=== PATIENT | female | born 1985 | race Caucasian/White ===

== ENCOUNTER 2016-04-25 10:46 | Emergency (ER) | payer OTHER ==
[~2016-04-25 10:46] MED LIST: ALBUTEROL HFA INH; AMOXICILLIN PO; AMOXICILLIN875 MG PO; BACTRIM DS TABL1 TA1 PO; BACTRIM DS TABL1 TAB PO; BENZONATATE PO; BIRTH CONTROL PILL; BIRTH CONTROL PILL PO; CIPRO PO; CIPROFLOXACIN500 M1 PO; CORTISPORIN-TC10 ML AS; DARVOCET-N 1001 TAB PO; DICLOFENAC PO; DOXYCYCLINE HY100 M3; FIORICET PO; FLEXERIL PO; FLEXERIL10 M1 PO; FLEXERIL10 MG PO; IBUPROFEN PO; IBUPROFEN800 MG PO; KEFLEX500 MG PO; KLONOPIN1 MG PO; METHADONE PO; MOTRIN600 M1 PO; MOTRIN600 MG PO; NAPROSYN500 MG PO; NAPROXEN PO; NO MEDICATIONS; ORTHO TRI-7 DAYS X PO; ORTHO TRI-7 DAYSX 3 PO; PENICILLIN V P500 MG PO; PERCOCET5/325 PO; PHENERGAN PO; PREDNISONE PO; PREDNISONE1 MG PO; PRENATAL MULITV1 TAB PO; PYRIDIUM PO; PYRIDIUM100 MG PO; SUDAFED PO; TYLENOL #3 PO; UNK ABX; VICODIN 5/500 T1 TAB PO; VICODIN PO; VOLTAREN50 MG PO; VOLTAREN75 MG PO; ZANAFLEX4 M1 PO; ZITHROMAX PO; ZONEGRAN100 MG; ZONEGRAN100 MG PO; ZYRTEC PO; [UNRECOGNIZED DRUG - OTHER]; [UNRECOGNIZED DRUG - OTHER] PO
[2016-04-25 11:10] LABS: BASOPHIL% 0.3 % (0-2.5); EOSINOPHIL# 0.1 X10e3 (0-0.7); EOSINOPHIL% 0.4 % (0.0-7.0); HEMATOCRIT 39.3 % (35.0-45.0); HEMOGLOBIN 12.8 gm/dL (12.0-16.0); LYMPHOCYTE# 0.9 X10e3 (1.0-3.5); LYMPHOCYTE% 6.7 % (17.0-45.0); MEAN CELL VOLUME 81.2 FL (83-96); MEAN CORPUSCULAR HEMOGLOBIN 26.3 PG (28-34); MEAN CORPUSCULAR HGB CONC 32.4 g/dL (30-36); MEAN PLATELET VOLUME 6.8 FL (6.5-11.5); MONOCYTE# 0.5 X10e3 (0-1.0); MONOCYTE% 3.7 % (3.0-12.0); NEUTROPHIL# 11.8 X10e3 (1.5-7.1); NEUTROPHIL% 88.9 % (40-75); PLATELET COUNT 301 X10e3 (140-420); RED BLOOD COUNT 4.85 X10e (3.90-5.30); RED CELL DISTRIBUTION WIDTH 14.6 % (11.0-15.5); WHITE BLOOD COUNT 13.3 X10e3 (4.0-10.5)
[2016-04-25 11:13] LABS: DIFF IND NO
[2016-04-25 11:48] LABS: ALKALINE PHOSPHATASE 83 U/L (32-92); ALT (SGPT) 25 U/L (10-40); AST (SGOT) 20 U/L (10-42); BILIRUBIN, DIRECT 0.1 mg/dL (0.0-0.2); BILIRUBIN,INDIRECT 0.1 mg/dL (0.0-0.9); BILIRUBIN,TOTAL 0.2 mg/dL (0.2-2.0); BLOOD UREA NITROGEN 14 mg/dL (9-23); CALCIUM SERUM 8.6 mg/dL (8.4-10.2); CARBON DIOXIDE 25 mmol/L (22-31); CHLORIDE 103 mmol/L (100-111); CREATININE SERUM 0.7 mg/dL (0.6-1.4); GLOM FILT RATE Estimated ABOVE60 mL/min (>60); GLUCOSE FASTING 99 mg/dL (70-110); LIPASE 34 U/L (22-51); POTASSIUM 4.5 mmol/L (3.5-5.1); PROTEIN TOTAL SERUM 7.2 g/dL (6.0-8.3); SODIUM 134 mmol/L (135-145)
[2016-04-25 12:07] LABS: URINE SOURCE CLEAN CATCH
[2016-04-25 12:14] LABS: URINE APPEARANCE CLEAR; URINE BILIRUBIN NEG (NEG); URINE BLOOD NEG (NEG); URINE COLOR YELLOW; URINE GLUCOSE NEG (NEG); URINE KETONE NEG (NEG); URINE LEUKOCYTE ESTERASE NEG (NEG); URINE NITRATE NEG (NEG); URINE PH 6.5 (5-8); URINE PROTEIN NEG (NEG); URINE SPECIFIC GRAVITY 1.028 (1.003-1.035)
[2016-04-25 12:19] LABS: CULTURE INDICATED? NO
== END 2016-04-25 12:55 | disposition home or self-care (01) ==
LOC: CED 10:46
PROVIDERS: Emergency Medicine
DX: R10.84 Generalized abdominal pain (principal); R19.7 Diarrhea, unspecified; F41.9 Anxiety disorder, unspecified; Z98.51 Tubal ligation status; F17.210 Nicotine dependence, cigarettes, uncomplicated; Z79.899 Other long term (current) drug therapy
CPT/HCPCS: 36415; 80048; 80076; 81003; 82947; 83690; 84703; 85025; 96361; 96372; 96374; 99284; J0500; J2405

== ENCOUNTER → 2016-05-13 | Outpatient (CLI) | payer OTHER ==
--- NOTE | ~2016-05-13 | CR63 ---
[facility] A Service of [facility] RADIOLOGY TEXT RESULTS PATIENT: EDYTA MUELLER LOCATION: [facility] : 87 UNIT #: [id number] AGE: [address]: Isaiah Joel MD SEX: F ORDER DR: [id number] [facility] [address] [place], [place] [address] [id number] O MR#: [id number] Acc #: [id number] NAME: EDYTA MUELLER : 1985 SEX: F STUDY DATE/TIME: 05/13/2016 10:29 UNIT: CLA ROOM: STUDY DESCRIPTION: CR Chest 2 View Attending Physician: Isaiah Joel M.D. Referring Physician: Isaiah Joel M.D. Ordering Physician: Isaiah Joel M.D. Primary Care Physician: Adrián Kinsey M.D. MEDICAL IMAGING REPORT This report is preliminary unless electronic signature is present EXAM Chest 2 views dated 05/13/2016 at 10:29 hours. COMPARISON Chest 2 views dated 12/19/14 at 01:34 hours. HISTORY Preop evaluation for lap sleeve gastrectomy. FINDINGS 2 views of the chest were obtained. PA and lateral examination of the chest upright shows a good expansion of the parenchyma with a normal distribution of the pulmonary vascularity. There is no indication of congestion, effusion, infiltrate, tumor, or nodular density. The pleural reflections and diaphragmatic contours are normal. The cardiac silhouette and mediastinal anatomy is within normal limits. IMPRESSION Normal chest. Dictated by... Codie Walsh M.D. THIS IS AN ELECTRONICALLY VERIFIED REPORT Codie Walsh M.D. at 05/14/2016 3:03 PM CPR/cmm TD: 05/13/2016 15:11 [facility] A Service of [facility] & [facility] RADIOLOGY TEXT RESULTS PATIENT: EDYTA MUELLER LOCATION: [facility] : 87 UNIT #: [id number] AGE: [address]: Isaiah Joel MD SEX: F ORDER DR: JOB #: [id number] MEDICAL IMAGING REPORT COPY
--- NOTE | ~2016-05-13 | EKG ---
PATIENT: EDYTA MUELLER UNIT #: [id number] Ventricular Rate: 79 BPM Atrial Rate: 79 BPM P-R Interval: 146 ms QRS Duration: 82 ms Q-T Interval: 388 ms QTC Calculation(Bezet): 444 ms P [place]: 62 degrees Calculated R [place]: -6 degrees Calculated T [place]: 8 degrees Diagnosis Line: Normal sinus rhythm Diagnosis Line: Normal ECG Diagnosis Line: No previous ECGs available Diagnosis Line: Confirmed by RADHA BULLARD MD ([id number]) on 05/13/2016 Diagnosis Line: 4:15:14 PM INTERPRETING MD: JUAN MIGUEL CARTER
[2016-05-13 10:32] LABS: HEMATOCRIT 40.1 % (35.0-45.0); HEMOGLOBIN 13.3 gm/dL (12.0-16.0); MEAN CELL VOLUME 80.6 FL (83-96); MEAN CORPUSCULAR HEMOGLOBIN 26.6 PG (28-34); MEAN PLATELET VOLUME 6.8 FL (6.5-11.5); RED BLOOD COUNT 4.98 X10e (3.90-5.30); RED CELL DISTRIBUTION WIDTH 14.4 % (11.0-15.5); WHITE BLOOD COUNT 9.3 X10e3 (4.0-10.5)
[2016-05-13 11:23] LABS: ALBUMIN SERUM 4.1 g/dL (3.5-5.0); ALKALINE PHOSPHATASE 86 U/L (32-92); ALT (SGPT) 23 U/L (10-40); AST (SGOT) 22 U/L (10-42); BILIRUBIN,TOTAL 0.5 mg/dL (0.2-2.0); BLOOD UREA NITROGEN 12 mg/dL (9-23); BUN/CREATININE RATIO 13.33; CALCIUM SERUM 8.7 mg/dL (8.4-10.2); CARBON DIOXIDE 27 mmol/L (22-31); CHLORIDE 104 mmol/L (100-111); CREATININE SERUM 0.9 mg/dL (0.6-1.4); GLOM FILT RATE Estimated ABOVE60 mL/min (>60); GLUCOSE FASTING 90 mg/dL (70-110); POTASSIUM 4.6 mmol/L (3.5-5.1); PROTEIN TOTAL SERUM 6.8 g/dL (6.0-8.3); SODIUM 134 mmol/L (135-145)
== END | disposition home or self-care (01) ==
LOC: CRAD 09:30
PROVIDERS: Surgery
DX: Z01.818 Encounter for other preprocedural examination (principal); E66.01 Morbid (severe) obesity due to excess calories
CPT/HCPCS: 36415; 71020; 80053; 84703; 85027; 85610; 85730; 93005